=== PATIENT | male | born 1960 | race Caucasian/White ===

== ENCOUNTER 2025-03-10 16:08 | Emergency (ER) | payer BC, SELFPAY ==
--- NOTE | ~2025-03-10 | XR_ITS ---
EXAMINATION: XR forearm RT 2V DATE: 03/10/2025 16:46 INDICATION: Dog bite TECHNIQUE: 2 images of the right forearm were obtained. COMPARISON: none FINDINGS: [ No significant degenerative change.] [ No radiographic evidence for an acute fracture or dislocation.] [ No radiopaque foreign body.] There is a 2.0 x 0.8 cm partially lytic, partially sclerotic structure along the medial cortex of the proximal third of the right ulna. The finding is indeterminate. An exostosis is possible. Other etiologies are possible. Dedicated x-rays of the right elbow are recommended. Soft tissue swelling about the right wrist, right forearm and right elbow with a few locules of air about the soft tissues most extensive about the right wrist and distal right ulna. IMPRESSION: 1. No fracture identified. 2. Soft tissue swelling about the right wrist, right forearm and right elbow with a few locules of nonspecific air about the soft tissues most extensive about the right wrist and distal right ulna. Correlate clinically 3. There is a 2.0 x 0.8 cm partially lytic, partially sclerotic structure along the medial cortex of the proximal third of the right ulna. The finding is indeterminate. An exostosis is possible. Other etiologies are possible. Dedicated x-rays of the right elbow are recommended. If symptoms persist or worsen, consider a short-term follow-up study or additional imaging for further assessment. If symptoms persist or worsen consider a short-term follow-up study or additional imaging for further assessment. Reviewed, dictated and finalized at location Q. IMPRESSION: 1. No fracture identified. 2. Soft tissue swelling about the right wrist, right forearm and right elbow wi th a few locules of nonspecific air about the soft tissues most extensive about the right wrist and distal right ulna. Correlate clinically 3. There is a 2.0 x 0.8 cm partially lytic, partially sclerotic structure along the medial cortex of the proximal third of the right ulna. The finding is inde terminate. An exostosis is possible. Other etiologies are possible. Dedicated x -rays of the right elbow are recommended. If symptoms persist or worsen, consider a short-term follow-up study or additio nal imaging for further assessment. If symptoms persist or worsen consider a short-term follow-up study or addition al imaging for further assessment.
--- NOTE | ~2025-03-10 | XR_ITS ---
EXAMINATION: XR forearm LT 2V, 03/10/2025 16:40 CDT HISTORY: dog bite COMPARISON: No comparisons available. Findings: No acute fracture or malalignment. No significant degenerative changes. Soft tissues unremarkable. Impression: No acute fracture or malalignment. Reviewed, dictated and finalized at location P. Impression: No acute fracture or malalignment.
[2025-03-10 16:13] VITALS: BP 150/92; PULSE 104; RESP 18; TEMP 37; O2SAT 100
--- NOTE | 2025-03-10 16:34 | ED_ITS ---
HPI - General Adult General Chief complaint: Animal Bite <Paula Barraza September, RESTAURANT MAINTENANCE TECHNICIAN - Last Filed: 03/10/25 18:41> Stated complaint: Multiple Dog bites-stray <Paula Barraza September, - Last Filed: 03/10/25 18:41> Time Seen by Provider: 03/10/25 16:34 <Paula Barraza September,N - Last Filed: 03/10/25 18:41> Focused HPI: Vishal Szymanski is a 64 y/o male who prsents with reports of being attacked by a dog and has multiple puncture wounds to bilateral arm, He says it was a stray dog, and it ran off. PD has not been notified. He is also concerned he may have a UTI, states he has been having urinary urgency / frequency for about a week. GENERAL: Well-appearing, well-nourished, and in no acute distress. HEAD: Normocephalic, atraumatic. CHEST: Clear to auscultation. ?No respiratory distress. HEART: Regular rate and rhythm.? NEURO: ?Alert and oriented x3. Patient screened in triage and initial orders placed.? ?Additional care and dis position to be based upon?diagnostic testing and treatment. <Paula Barraza September, - Last Filed: 03/10/25 18:41> History of Present Illness HPI narrative: agree with HPI <Devante Aguilar MD - Last Filed: 03/10/25 22:29> Related Data Allergies/adverse reactions: Allergies Allergy/AdvReac Type Severity Reaction Status Date / Time No Known Allergies Allergy Verified 03/10/25 16:10 <Paula Barraza September, - Last Filed: 03/10/25 18:41> Review of Systems Review of Systems: Gen.: Denies fevers or chills Eyes: Denies eye pain or visual change ENT: Denies congestion Respiratory: Denies shortness of breath or cough CV: Denies chest pain or palpitations GI: Denies abdominal pain nausea, emesis or diarrhea denies burning, urgency, frequency or hematuria Musculoskeletal: As per HPI Neuro: Denies numbness, tingling, weakness or focal weakness Skin: As per HPI Except as documented, all other systems reviewed and negative <Devante Aguilar MD - Last Filed: 03/10/25 22:29> Exam Narrative: APPEARANCE: No acute distress, nontoxic, resting in bed HEENT: Normocephalic, atraumatic, OMM RESPIRATORY: No respiratory distress CARDIOVASCULAR: Appears well perfused ABDOMINAL: Nondistended MUSCULOSKELETAl: Moves all extremities. No obvious deformities NEURO: Awake and alert. SKIN:: Multiple puncture wounds to the bilateral forearms and hands with a small amount of oozing from some of the sites. PSYCHIATRIC: Normal affect/mood, <Devante Aguilar MD - Last Filed: 03/10/25 22:29> Course Vital Signs Vital signs: Vital Signs Temperature 98.6 F 03/10/25 16:13 Pulse Rate 104 H 03/10/25 16:13 Respiratory Rate 18 03/10/25 16:13 Blood Pressure 150/92 H 03/10/25 16:13 Pulse Oximetry 100 03/10/25 16:13 Temperature 98.6 F 03/10/25 17:36 Pulse Rate 101 H 03/10/25 18:47 Respiratory Rate 16 03/10/25 18:47 Blood Pressure 143/123 H 03/10/25 18:47 Pulse Oximetry 100 03/10/25 18:47 Oxygen Delivery Room Air 03/10/25 17:36 <Paula Bush, RESTAURANT MAINTENANCE TECHNICIAN - Last Filed: 03/10/25 18:41> Vital Signs Temperature 98.6 F 03/10/25 16:13 Pulse Rate 104 H 03/10/25 16:13 Respiratory Rate 18 03/10/25 16:13 Blood Pressure 150/92 H 03/10/25 16:13 Pulse Oximetry 100 03/10/25 16:13 Temperature 98.6 F 03/10/25 17:36 Pulse Rate 101 H 03/10/25 18:47 Respiratory Rate 16 03/10/25 18:47 Blood Pressure 143/123 H 03/10/25 18:47 Pulse Oximetry 100 03/10/25 18:47 Oxygen Delivery Room Air 03/10/25 17:36 <Devante Aguilar MD - Last Filed: 03/10/25 22:29> Medical Decision Making MDM Narrative Medical decision making narrative: 64-year-old male presenting for dog bite. On initial evaluation, patient was no acute distress afebrile, hemodynamically stable. He did have multiple dog bite puncture wounds to his bilateral forearms and hands. X-rays were obtained which showed significant soft tissue swelling. Also a noted partially lytic lesion to the right proximal ulna. Patient was given doxycycline. Given that this was a stray dog that cannot be monitored, rabies vaccinations and rabies immunoglobulin were administered. Puncture wounds or approximated with Steri-Strips. Patient had also been complaining of UTI symptoms so a UA was obtained which showed no evidence of UTI. Did show triple phosphate crystals and hematuria so I advised him to follow-up with his urologist and barrel bander for this. Patient was scheduled for rabies vaccination series. He was given a prescription for doxycycline. Patient was agreeable to this plan. Given strict return precautions. <Devante Aguilar MD - Last Filed: 03/10/25 22:29> Differential Diagnosis Differential Diagnosis: Dog bite, cellulitis, UTI <Devante Aguilar MD - Last Filed: 03/10/25 22:29> Medical Records Medical records reviewed: Yes I reviewed the external patient's medical records. <Devante Aguilar MD - Last Filed: 03/10/25 22:29> Vital Signs Vital Signs: Vital Signs Temperature 98.6 F 03/10/25 16:13 Pulse Rate 104 H 03/10/25 16:13 Respiratory Rate 18 03/10/25 16:13 Blood Pressure 150/92 H 03/10/25 16:13 Pulse Oximetry 100 03/10/25 16:13 Temperature 98.6 F 03/10/25 17:36 Pulse Rate 101 H 03/10/25 18:47 Respiratory Rate 16 03/10/25 18:47 Blood Pressure 143/123 H 03/10/25 18:47 Pulse Oximetry 100 03/10/25 18:47 Oxygen Delivery Room Air 03/10/25 17:36 <Paula Bush, RESTAURANT MAINTENANCE TECHNICIAN - Last Filed: 03/10/25 18:41> Vital Signs Temperature 98.6 F 03/10/25 16:13 Pulse Rate 104 H 03/10/25 16:13 Respiratory Rate 18 03/10/25 16:13 Blood Pressure 150/92 H 03/10/25 16:13 Pulse Oximetry 100 03/10/25 16:13 Temperature 98.6 F 03/10/25 17:36 Pulse Rate 101 H 03/10/25 18:47 Respiratory Rate 16 03/10/25 18:47 Blood Pressure 143/123 H 03/10/25 18:47 Pulse Oximetry 100 03/10/25 18:47 Oxygen Delivery Room Air 03/10/25 17:36 <Devante Aguilar MD - Last Filed: 03/10/25 22:29> Lab Data Lab results reviewed: Yes I reviewed the patient's lab results. <Devante Aguilar MD - Last Filed: 03/10/25 22:29> Labs: Lab Results 03/10/25 Range/Units 17:46 Urine Color Yellow (Yellow) Urine Appearance Turbid H (Clear) Urine pH 8.0 (5.0-9.0) Ur Specific [place] 1.010 (1.001-1.035) Urine Protein Trace (Negative) mg/dL Urine Glucose (UA) Negative (Negative) mg/dL Urine Ketones Negative (Negative) mg/dL Ur Blood (Man) 1+ H (Negative) Urine Nitrate Negative (Negative) Urine Bilirubin Negative (Negative) Urine Urobilinogen 0.2 (<2.0) mg/dL Add Ur Microanalysis Reviewed Leukocyte Esterase Rfl 2+ H (Negative) VARINDER/UL Urine RBC 11-20 H (0-2) /hpf Urine WBC 11-20 H (0-3) /hpf Ur Squamous Epith Cells None seen (Few) /hpf Triple Phos Crystals Present H (None) /hpf Urine Bacteria None seen /hpf Urine Casts 0-2 <Paula Bush, ZIYAD - Last Filed: 03/10/25 18:41> Lab Results 03/10/25 Range/Units 17:46 Urine Color Yellow (Yellow) Urine Appearance Turbid H (Clear) Urine pH 8.0 (5.0-9.0) Ur Specific [place] 1.010 (1.001-1.035) Urine Protein Trace (Negative) mg/dL Urine Glucose (UA) Negative (Negative) mg/dL Urine Ketones Negative (Negative) mg/dL Ur Blood (Man) 1+ H (Negative) Urine Nitrate Negative (Negative) Urine Bilirubin Negative (Negative) Urine Urobilinogen 0.2 (<2.0) mg/dL Add Ur Microanalysis Reviewed Leukocyte Esterase Rfl 2+ H (Negative) VARINDER/UL Urine RBC 11-20 H (0-2) /hpf Urine WBC 11-20 H (0-3) /hpf Ur Squamous Epith Cells None seen (Few) /hpf Triple Phos Crystals Present H (None) /hpf Urine Bacteria None seen /hpf Urine Casts 0-2 <Devante Aguilar MD - Last Filed: 03/10/25 22:29> Imaging Data Attestation: I personally reviewed and interpreted this imaging study as follows: <Devante Aguilar MD - Last Filed: 03/10/25 22:29> Radiologist's impression: Impressions Forearm X-Ray 03/10/25 16:47 Impression: No acute fracture or malalignment. Forearm X-Ray 03/10/25 16:54 IMPRESSION: 1. No fracture identified. 2. Soft tissue swelling about the right wrist, right forearm and right elbow with a few locules of nonspecific air about the soft tissues most extensive about the right wrist and distal right ulna. Correlate clinically 3. There is a 2.0 x 0.8 cm partially lytic, partially sclerotic structure along the medial cortex of the proximal third of the right ulna. The finding is indeterminate. An exostosis is possible. Other etiologies are possible. Dedicated x-rays of the right elbow are recommended. If symptoms persist or worsen, consider a short-term follow-up study or additional imaging for further assessment. If symptoms persist or worsen consider a short-term follow-up study or additional imaging for further assessment. <Devante Aguilar MD - Last Filed: 03/10/25 22:29> Discharge Plan Discharge Clinical Impression: Dog bite Qualifiers: Encounter type: initial encounter Qualified Code(s): W54.0XXA - Bitten by dog, initial encounter Puncture wound of left upper arm Qualifiers: Encounter type: initial encounter Qualified Code(s): S41.132A - Puncture wound without foreign body of left upper arm, initial encounter Puncture wound of right upper arm Qualifiers: Encounter type: initial encounter Qualified Code(s): S41.131A - Puncture wound without foreign body of right upper arm, initial encounter <Paula Barraza September, RESTAURANT MAINTENANCE TECHNICIAN - Last Filed: 03/10/25 18:41> Patient Disposition: Home <Paula Barraza September, RESTAURANT MAINTENANCE TECHNICIAN - Last Filed: 03/10/25 18:41> Condition: Stable <Paula Barraza September, RESTAURANT MAINTENANCE TECHNICIAN - Last Filed: 03/10/25 18:41> Instructions: Antibiotic Form, Rabies Vaccine (By injection), Rabies Immune Globulin (By injection), Animal Bite (ED) <Paula Bush RESTAURANT MAINTENANCE TECHNICIAN - Last Filed: 03/10/25 18:41> Additional Instructions: Take doxycycline as prescribed. He may take Tylenol or ibuprofen for pain. Continue to monitor the wounds for signs of infection. You need to return a to this hospital with the infection prevention nurse on 03/13 on 03/17, 03/24, 04/07. Follow up with your urologist regarding the blood in your urine. Follow up with your barrel bander regarding the crystals in your urine. Return to the ED for new or worsening symptoms. <Paula Bush, RESTAURANT MAINTENANCE TECHNICIAN - Last Filed: 03/10/25 18:41> Patient Language: Bahamian <Paula Bush RESTAURANT MAINTENANCE TECHNICIAN - Last Filed: 03/10/25 18:41> Prescriptions: New doxycycline hyclate 100 mg capsule 100 mg PO Q12H Qty: 14 0RF <Paula Bush, RESTAURANT MAINTENANCE TECHNICIAN - Last Filed: 03/10/25 18:41> Follow-up/Referrals: Maxi Brown MD [Physician, Family Practice] PHYSICIAN NOT ON STAFF,NONSTAFF [Primary Care Provider] <Paula Bush, RESTAURANT MAINTENANCE TECHNICIAN - Last Filed: 03/10/25 18:41>
[2025-03-10] MEDS: TETANUS,DIPHTHERIA,AC PERTUSSIS ADULT (0.5 ML) BOOSTRIX IM (17:34)
[2025-03-10 17:36] VITALS: BP 170/92; PULSE 97; RESP 18; TEMP 37; O2SAT 100
--- NOTE | 2025-03-10 18:08 | PC.NURSE ---
Oriana ESCALONA with infection control notified of rabies vaccination order
[2025-03-10 18:14] LABS: Add Urine Microscopic? YES; Appearance Urine Turbid (Clear); Glucose Urine UA Negative (Negative); Leukocyte Esterase Ur 2+ LEU/UL (Negative); Need Manual Microscopic Reviewed; Nitrate Urine Negative (Negative); Non Pathogenic Casts 0-2; Specific Grav Ur 1.010 (1.001-1.035)
[2025-03-10 18:47] VITALS: BP 143/123; PULSE 101; RESP 16; O2SAT 100
[2025-03-10] MEDS: ACETAMINOPHEN 500 MG TABLET 1000 MG PO (18:47)
[2025-03-10] MEDS: RABIES VACCINE (RABAVERT) 2.5 UNITS VIAL IM (18:52)
[2025-03-10] MEDS: DOXYCYCLINE HYCLATE 100 MG TABLET PO (19:33)
== END 2025-03-10 19:36 | disposition home or self-care (01) ==
LOC: ANHED 19:25
PROVIDERS: Nurse Practitioner Family; Emergency Provider Student in an Organized Health Care Education/Training Program
DX: S51.852A Open bite of left forearm, initial encounter (principal); S51.851A Open bite of right forearm, initial encounter; Z23 Encounter for immunization; Z29.14 Encounter for prophylactic rabies immune globulin; W54.0XXA Bitten by dog, initial encounter
CPT/HCPCS: 73090; 81001; 87086; 90471; 90472; 90675; 90715; 99283; A9270